=== PATIENT | male | born 2005 | race Caucasian/White ===

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

== ENCOUNTER 2024-07-02 15:03 | Emergency (ER) | payer OTHER ==
--- NOTE | 2024-07-02 15:52 | ED ---
Fall HPI - General Chief Complaint: Fall Stated Complaint: [facility]- Fall L Arm Injury Time Seen by Provider: 07/02/24 15:18 Source: patient, RN notes reviewed Mode of arrival: ambulatory - History of Present Illness Initial Comments: 18-year-old male presenting to the emergency department from urgent care after a fall. 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 Patient fell onto the left side of his body onto his arm. He denies hitting his head or loss of consciousness. He is denying neck pain, headaches, abdominal pain, chest pain, other extremity injuries. Pain is most severe over the left upper extremity. Denies paresthesias. No other acute complaints at this time. - Related Data Home Medications Medication Instructions Recorded Confirmed Dextroamphetamine/Amphetamine 1 tab PO DAILY 05/21/15 05/21/15 [Adderall Xr] Previous Rx's Medication Instructions Recorded Amoxicillin 500 mg PO Q8H 10 Days day 05/21/15 Ibuprofen [Motrin] 800 mg PO Q8HR PRN #30 tab 07/02/24 Allergies Allergy/AdvReac Type Severity Reaction Status Date / Time No Known Allergies Allergy Verified 07/02/24 15:18 Review of Systems ROS Statement: Those systems with pertinent positive or pertinent negative responses have been documented in the HPI. ROS Other: All systems not noted in ROS Statement are negative. Past Medical History Past Medical History: No Reported History History of Any Multi-Drug Resistant Organisms: None Reported Past Surgical History: No Surgical Hx Reported Past Psychological History: ADD/ADHD Smoking Status: Current every day smoker Past Alcohol Use History: None Reported Past Drug Use History: None Reported General Exam Limitations: no limitations General appearance: alert, in no apparent distress Neck exam: Present: normal inspection. Absent: tenderness, meningismus, lymphadenopathy Respiratory exam: Present: normal lung sounds bilaterally. Absent: respiratory distress, wheezes, rales, rhonchi, stridor Cardiovascular Exam: Present: regular rate, normal rhythm, normal heart sounds. Absent: systolic murmur, diastolic murmur, rubs, gallop, clicks Left Upper Arm exam: Present: full ROM, tenderness Elbow exam: Present: tenderness, swelling. Absent: full ROM, ecchymosis, deformity Forearm Wrist exam: Present: tenderness Neuro motor exam: Present: wrist extension intact, thumb opposition intact Vascular: Present: normal capillary refill. Absent: vascular compromise Back exam: Present: normal inspection Neurological exam: Present: alert, oriented X3, CN II-XII intact Course Vital Signs 07/02/24 07/02/24 15:14 17:22 Temperature 98 F 98.4 F Pulse Rate 87 103 H Respiratory 18 18 Rate Blood Pressure 128/76 142/89 O2 Sat by Pulse 98 96 Oximetry Procedures - Orthopedic Splinting/Casting Injury #1 Side: left Upper Extremity Immobilizer: posterior splint, Shantanu wrap, synthetic pre-padded splint Medical Decision Making - Medical Decision Making Was pt. sent in by a medical professional or institution (, PA, EDITOR MANAGING DIRECTOR, urgent care, hospital, or care home...) When possible be specific @ -No Did you speak to anyone other than the patient for history (EMS, parent, family, police, friend...)? What history was obtained from this source @ -No Did you review nursing and triage notes (agree or disagree)? Why? @ -I reviewed and agree with nursing and triage notes Were old charts reviewed (outside hosp., previous admission, EMS record, old EKG, old radiological studies, urgent care reports/EKG's, care home records)? Report findings @ -No old charts were reviewed Differential Diagnosis (chest pain, altered mental status, abdominal pain women, abdominal pain men, vaginal bleeding, weakness, fever, dyspnea, syncope, headache, dizziness, GI bleed, back pain, seizure, CVA, palpatations, mental health, musculoskeletal)? @ -Differential Musculoskeletal Muscular strain, contusion, ligament sprain, fracture, arthritis, septic arthritis, bursitis, cellulitis, muscle spasm, nerve compression, DVT, arterial occlusion, herpes zoster, electrolyte abnormality, tumor.... This is not meant to be in all inclusive list EKG interpreted by me (3pts min.). @ -none X-rays interpreted by me (1pt min.). @ -[X-ray of the left shoulder no acute osseous abnormality noted, x-ray of the left hand no acute osseous abnormality noted, x-ray deformities affecting elbow joint effusion with potential for occult internal derangement with no displaced fracture noted CT interpreted by me (1pt min.). @ -None done U/S interpreted by me (1pt. min.). @ -None done What testing was considered but not performed or refused? (CT, X-rays, U/S, labs)? Why? @ -None What meds were considered but not given or refused? Why? @ -None Did you discuss the management of the patient with other professionals (professionals i.e. , PA, EDITOR MANAGING DIRECTOR, lab, RT, psych nurse, social services manager, rehabilitation liaison, teacher, examining officer, manager case)? Give summary @ -No Was smoking cessation discussed for >3mins.? @ -No Was critical care preformed (if so, how long)? @ -No Were there social determinants of health that impacted care today? How? (Homelessness, low income, unemployed, alcoholism, drug addiction, transportation, low edu. Level, literacy, decrease access to med. care, longterm, rehab)? @ -No Was there de-escalation of care discussed even if they declined (Discuss DNR or withdrawal of care, Hospice)? DNR status @ -No What co-morbidities impacted this encounter? (DM, HTN, Smoking, COPD, CAD, Cancer, CVA, ARF, Chemo, Hep., AIDS, mental health diagnosis, sleep apnea, morbid obesity)? @ -None Was patient admitted / discharged? Hospital course, mention meds given and route, prescriptions, significant lab abnormalities, going to OR and other pertinent info. @ -Discharge. 18 old male presents emerged part with referral from urgent care for left arm pain. Patient is in a sling and sling is removed for evaluation. There is mild swelling over the elbow. Neurovascularly intact of the upper extremity. He is provided with dose of Dilaudid for pain relief. X-ray imaging of the forearm reveals don elbow joint effusion consistent with likely radial head fracture. Patient is placed in a posterior arm splint and placed in a sling and provided with orthopedic follow-up. He is also provided with starter pack of Tylenol 3 to take for pain. Case discussed with Dr. gallegos Undiagnosed new problem with uncertain prognosis? @ -No Drug Therapy requiring intensive monitoring for toxicity (Heparin, Nitro, Insulin, Cardizem)? @ -No Were any procedures done? @ -Orthopedic splinting Diagnosis/symptom? @ -Elbow fracture Acute, or Chronic, or Acute on Chronic? @ -Acute Uncomplicated (without systemic symptoms) or Complicated (systemic symptoms)? @ -Uncomplicated Side effects of treatment? @ -No Exacerbation, Progression, or Severe Exacerbation? @ -No Poses a threat to life or bodily function? How? (Chest pain, USA, IA, pneumonia, PE, COPD, DKA, ARF, appy, cholecystitis, CVA, Diverticulitis, Homicidal, Suicidal, threat to staff... and all critical care pts) @ -No Disposition Clinical Impression: Fall, Elbow fracture, left Disposition: HOME SELF-CARE Condition: Good Instructions (If sedation given, give patient instructions): Elbow Fracture (ED) Additional Instructions: Please return to the Emergency Department if symptoms worsen or any other concerns. Follow-up with provided cash applications specialist. continue to wear sling until follow-up. Use Tylenol/Motrin as needed for pain relief Prescriptions: Ibuprofen [Motrin] 800 mg PO Q8HR PRN #30 tab PRN Reason: Pain Is patient prescribed a controlled substance at d/c from ED?: No Referrals: None,Stated [Primary Care Provider] - 1-2 days Janie Crockett [Doctor of Osteopathic Medicine] - 1-2 days Time of Disposition: 17:01
[2024-07-02] MEDS: HYDROmorphone 0.5 MG/0.5 ML SYRINGE IVP STA (16:03)
[2024-07-02] MEDS: HYDROmorphone 0.5 MG/0.5 ML SYRINGE IM STA (16:08)
--- NOTE | 2024-07-02 16:34 | XR ---
EXAMINATION TYPE: XR shoulder complete 3 views LT, XR forearm 2 views LT, XR hand complete 3 views LT DATE OF EXAM: 07/02/2024 4:20 PM COMPARISON: None CLINICAL INDICATION: Male, 18 years old with history of fall, pain; PHH, pain FINDINGS: Forearm: There is don elevation of the anterior and posterior fat pads of the elbow. No displaced fracture i s seen here. Wrist articulation appears grossly intact. No acute fracture identified. Hand: No acute fracture, subluxation, dislocation is seen. Joint spaces throughout are maintained. Left shoulder: AC joint appears congruent and intact. Subacromial space is preserved. Smooth delineation to the grea ter tuberosity. No acute fracture, subluxation, dislocation. IMPRESSION: 1. Forearm: Don elbow joint effusion. This may indicate occult internal derangement. No displaced f racture is seen at this time. Orthopedic follow-up advised. 2. Hand: No acute osseous abnormality seen. 3. Left shoulder: No acute osseous abnormality seen. [facility], , 07/02/2024 4:32 PM
[2024-07-02] MEDS: ACET/COD 300 MG/30 MG STARTER PACK 6 TAB BTL PO STA (17:21)
[2024-07-02 17:23] VITALS: BP 142/89; PULSE 103; TEMP 98.4
[2024-07-02 17:34] VITALS: RESP 18
== END 2024-07-02 17:34 | disposition home or self-care (01) ==
LOC: EC 15:03
DX: S42.402A Unspecified fracture of lower end of left humerus, initial encounter for closed fracture (principal); F17.200 Nicotine dependence, unspecified, uncomplicated; W13.2XXA Fall from, out of or through roof, initial encounter
CPT/HCPCS: 73030; 73090; 73130; 99283; 29125; 96372; J1171